=== PATIENT | male | born 1945 | race Caucasian/White ===

== ENCOUNTER 2017-05-03 22:03 | Emergency (ER) | payer OTHER ==
[~2017-05-03] VITALS: Ht 160 cm; Wt 86.3 kg
[2017-05-03 23:25] LABS: HEMATOCRIT 43.9 % (38.0-50.0); HEMOGLOBIN 15.2 G/DL (12.5-16.6); MCH 30.9 PG (29.0-34.0); MCHC 34.6 G/DL (30.0-36.0); MCV 89.2 FL (86-99); PLATELET COUNT 279 K/uL (156-360); RBC DIS.WIDTH-CV 13.6 % (11.8-14.6); RBC DIS.WIDTH-SD 44.3 % (39-53); RED BLOOD COUNT 4.92 M/uL (4.00-5.50); WHITE BLOOD COUNT 13.7 K/uL (4.1-10.2)
[2017-05-03 23:34] LABS: ALBUMIN 3.9 g/dL (3.2-4.8); CHLORIDE 103 mEq/L (99-109); POTASSIUM 4.7 mEq/L (3.7-5.4); SODIUM 136 mEq/L (136-147)
[2017-05-03 23:36] LABS: GLUCOSE 177 mg/dL (70-99)
[2017-05-03 23:38] LABS: TOTAL BILIRUBIN 0.5 mg/dL (0.0-1.0)
[2017-05-03 23:40] LABS: ALKALINE PHOSPHATASE 102 IU/L (3-129); CREATININE 1.2 mg/dL (0.6-1.3); GFR ESTIMATE (CALCULATED) > 59 mL/min/ (58.99-99999)
[2017-05-03 23:41] LABS: UREA NITROGEN (BUN) 12 mg/dL (9-23)
[2017-05-03 23:42] LABS: AST (GOT) 19 IU/L (2-34)
[2017-05-03 23:43] LABS: ALT (GPT) 34 IU/L (3-49)
[2017-05-04 01:45] LABS: APPEARANCE CLEAR ((CLEAR)); BILIRUBIN NEGATIVE; BLOOD MODERATE; COLOR YELLOW ((YELLOW)); GLUCOSE (STRIP) NEGATIVE; KETONES NEGATIVE; LEUKOCYTES NEGATIVE; NITRITE NEGATIVE; PROTEIN (STRIP) 30; SPECIFIC GRAVITY 1.016 (1.000-1.030); UROBILINOGEN 0.2 MG/DL (0.2-1.0)
[2017-05-04 01:52] LABS: BACTERIA NONE SEEN /HPF; EPITHELIAL CELLS RARE /HPF; MUCUS TRACE /LPF; RED BLOOD CELLS TNTC /HPF (0-5); UCUL ADDED? YES; WHITE BLOOD CELLS 0-5 /HPF (0-5)
[2017-05-04] MEDS ORDERED: NORCO 5/3251 TABLET PO (01:57)
[2017-05-04] MEDS ORDERED: MOTRIN600 MG PO (01:57)
[2017-05-04] MEDS ORDERED: FLOMAX0.4 MG PO (01:57)
[2017-05-04] MEDS ORDERED: ZOFRAN ODT4 MG PO (01:57)
[2017-05-04 02:23] VITALS: BP 154/77
== END 2017-05-04 02:25 | disposition home or self-care (01) ==
LOC: EME 22:03
DX: N13.2 Hydronephrosis with renal and ureteral calculous obstruction (principal); N40.0 Benign prostatic hyperplasia without lower urinary tract symptoms; E78.5 Hyperlipidemia, unspecified; E03.9 Hypothyroidism, unspecified; Z87.442 Personal history of urinary calculi
CPT/HCPCS: 74176; 76870; 80053; 81003; 85027; 87086; 99281; 99285; J1885; J2405; J3010